=== PATIENT | female | born 1935 | race Hispanic/Latino ===

== ENCOUNTER 2019-10-05 08:56 | Inpatient (IN) | payer MEDICARE, OTHER ==
[~2019-10-05] VITALS: Ht 160 cm; Wt 54.9 kg
[2019-10-05] MEDS ORDERED: ACETAMINOPHEN 325 MG TAB PO STA (09:28)
[2019-10-05] MEDS ORDERED: SODIUM CHLORIDE 0.9% 1000ML 1,000 ML IV STA ×2 (09:28→11:08)
[2019-10-05] MEDS ORDERED: METRONIDAZOLE 500MG/NS 100ML 100 ML IV ONE ×2 (09:30→10:41)
[2019-10-05] MEDS ORDERED: PIPER-TAZ 3.375 GM 50 ML IV ONE (09:30)
--- NOTE | 2019-10-05 10:33 | Diagnostic Imaging Report ---
Chest, PA and lateral. History: Dehydrated, fever, chills. Comparison: None available. Impression: The heart is within normal limits of size. The aorta has a tortuous appearance. Linear atelectasis versus scarring is present in the right lower lung zone. There is no focal consolidation, sizable pleural effusion, or pneumothorax. Degenerative changes of the thoracic spine are present. No acute osseous abnormalities. Signed by: Evelio Martinez MD on 10/05/2019 10:29 AM
[2019-10-05] MEDS ORDERED: ACETAMINOPHEN 325 MG TAB ONE (10:41)
[2019-10-05] MEDS ORDERED: SODIUM CHLORIDE 0.9% 1000ML 1,000 ML ONE ×2 (10:41→11:21)
[2019-10-05] MEDS ORDERED: PIPER-TAZ 3.375 GM 50 ML ONE (10:41)
[2019-10-05] MEDS ORDERED: DEXTROSE 50% SYRINGE 50 ML IV PRN (11:15)
[2019-10-05] MEDS ORDERED: DIPHENHYDRAMINE HCL INJ 50 MG/ML VIAL IV PRN (11:15)
[2019-10-05] MEDS ORDERED: ONDANSETRON HCL INJ 2MG/ML 2ML 2 MG/ML VIAL IV PRN (11:15)
[2019-10-05] MEDS ORDERED: HYDROCHLOROTHIA25 MG (11:26)
[2019-10-05] MEDS ORDERED: PEPCID20 MG (11:26)
[2019-10-05] MEDS ORDERED: LOSARTAN POTAS100 MG PO (11:26)
[2019-10-05] MEDS ORDERED: METFORMIN HCL500 MG PO (11:26)
[2019-10-05] MEDS ORDERED: PRAVASTATIN SOD20 MG (11:26)
[2019-10-05] MEDS: INSULIN REGULAR, HUMAN 100 UNIT/1 ML 3ML VIAL SQ SCH ×3 (11:30→20:38)
--- NOTE | 2019-10-05 11:34 | NUR ---
H&P cc: cough HPI: 84yoF, admitted to hospital after symptoms of cough revealed positive Flu testing. PMH: HTN, HLD, DM2, ?dementia? PShx; unknown Allergies; see emr FH/SH: family involved in care; no etoh/cigs meds; see MAR ROS: unobtainable v/s revd PE tired appearing anicteric ns1s2 reduced BS soft nt nd no e/t skin dry flat affect awake; howard labs/med revd A/P: 84yoF Flu B positive Acute bronchitis TASHIA HTN HLD DM2 PLAN tamiflu IVF hba1c/lipids SCD DIspo: await clinical improvement; Javier Madrigal MD, PhD.
--- NOTE | 2019-10-05 11:39 | NUR ---
Called [facility] for transport to room 290.
--- OUTSIDE RECORDS SUMMARY | 2019-10-05 11:44 | XMS REPORT ---
Author Author [facility] Address Unknown Phone Unavailable Care Team Providers Care Lumber Marker Name Role Phone Saulo PERSAUD Unavailable Unavailable Problems This patient has no known problems. Allergies, Adverse Reactions, Alerts This patient has no known allergies or adverse reactions. Medications This patient has no known medications. Results Test Description Test Time Test Comments Text Results Atomic Results Result Comments CXR 2 VIEW - [facility] 2019-10-05 10:28:00 [place] [address] Patient Name: JHON SHANKS MR #: [id number] : 1935 Age/Sex: 84/F Req #: [id number] Adm Physician: Ordered by: BRANDY PERSAUD MD Report #: [id number] Location: FS Room/Bed: Procedure: [id number] HOPD/CXR 2 VIEW - [facility] Exam Date: 10/05/19 Exam Time: 1004 REPORT STATUS: Signed Chest, PA and lateral. History: Dehydrated, fever, chills. Comparison: None available. Impression: The heart is within normal limits of size. The aorta has a tortuous appearance. Linear atelectasis versus scarring is present in the right lower lung zone. There is no focal consolidation, sizable pleural effusion, or pneumothorax. Degenerative changes of the thoracic spine are present. No acute osseous abnormalities. Signed by: Evelio Schmitz MD on 10/05/2019 10:29 AM Dictated By: EVELIO SCHMITZ MD 1029 Transcribed By: GILLIAN on 10/05/19 1029 COPY TO: BRANDY PERSAUD MD
--- NOTE | 2019-10-05 11:53 | NUR ---
Report to MELANIE Sotelo
--- NOTE | 2019-10-05 12:50 | NUR ---
pt arrived via EMS to [facility] unit; pt awake, alert, no signs of distress, will continue to monitor.
[2019-10-05 12:51] VITALS: BP 106/49
--- NOTE | 2019-10-05 13:25 | NUR ---
pt ambulated to bathroom, had 1 BM of watery diarrhea; unable to obtain urine sample. informed pt of need for urine specimen and left hat on the commode.
[2019-10-05 13:59] LABS: ALBUMIN 2.6 g/dL (3.5-5.0); ALBUMIN/GLOBULIN RATIO 0.8 (0.8-2.0); ANION GAP 17.7 mmol/L (8-16); CALCIUM 8.1 mg/dL (8.4-10.2); CREATININE, SERUM 2.4 mg/dL (0.57-1.11); POTASSIUM 3.7 mmol/L (3.5-5.1)
[2019-10-05 16:00] VITALS: BP 92/50
[2019-10-05] MEDS ORDERED: SODIUM CHLORIDE 0.9% 250ML 250 ML ONE (16:21)
[2019-10-05] MEDS: OSELTAMIVIR PHOSPHATE 75 MG CAP PO SCH ×2 (16:22→20:37)
[2019-10-05] MEDS: ENOXAPARIN 30 MG/0.3 ML SYR SC SCH (16:24)
[2019-10-05] MEDS: FAMOTIDINE 20 MG/2 ML VIAL IV SCH (16:30)
[2019-10-05] MEDS: PIPER-TAZ 3.375 GM 50 ML IV SCH ×2 (16:31→23:57)
--- NOTE | 2019-10-05 19:17 | NUR ---
Received bedside report from day nurse. Patient resting in bed, no s/s of distress or c/o pain at this time. Obtained urine sample for culture as ordered. All safety measures in place. Family at bedside. Will continue to monitor.
[2019-10-05 20:00] VITALS: BP 141/63
[2019-10-05] MEDS: ZOLPIDEM TARTRATE 5 MG TAB PO PRN (20:38)
[2019-10-05 21:05] VITALS: BP 141/63
[2019-10-06] VITALS (9 sets, daily range): BP systolic 98–150; BP diastolic 54–89
[2019-10-06] MEDS: PIPER-TAZ 3.375 GM 50 ML IV SCH ×4 (05:16→23:49)
[2019-10-06 06:42] LABS: BASOPHILS % 0.4 % (0.0-1.0); EOSINOPHILS % 0.3 % (0.0-6.0); HEMATOCRIT 27.8 % (34.2-44.1); HEMOGLOBIN 9.3 g/dL (12.0-16.0); LYMPHOCYTES # (AUTO) 0.7 (1.0-3.2); LYMPHOCYTES % 7.3 % (18.0-39.1); MEAN CORPUSCULAR HEMOGLOBIN 29.8 pg (28-32); MEAN CORPUSCULAR HGB CONC 33.5 g/dL (31-35); MEAN CORPUSCULAR VOLUME 89.1 fL (81-99); MONOCYTES # (AUTO) 0.6 (0.2-0.8); NEUTROPHILS # (AUTO) 8.1 (2.1-6.9); NEUTROPHILS % 85.1 % (38.7-80.0); PLATELET COUNT 107 x10e3/uL (140-360); RED BLOOD COUNT 3.12 x10e6/uL (3.6-5.1); RED CELL DISTRIBUTION WIDTH 13.4 % (11.7-14.4)
--- NOTE | 2019-10-06 06:53 | NUR ---
Bedside report given to day nurse. Patient resting in bed, no s/s of distress or c/o pain at this time. All safety measures in place.
--- NOTE | 2019-10-06 06:54 | NUR ---
walking rounds completed, change of shift report received from office assistant RN. pt in stable condition.
[2019-10-06 07:02] LABS: ANION GAP 15.1 mmol/L (8-16); CALCIUM 7.1 mg/dL (8.4-10.2); CREATININE, SERUM 2.11 mg/dL (0.57-1.11); POTASSIUM 3.1 mmol/L (3.5-5.1)
[2019-10-06] MEDS ORDERED: POTASSIUM CHLORIDE 20 MEQ TAB CR PO STA (07:12)
[2019-10-06] MEDS: INSULIN REGULAR, HUMAN 100 UNIT/1 ML 3ML VIAL SQ SCH ×4 (07:30→20:22)
[2019-10-06] MEDS: ACETAMINOPHEN 325 MG TAB PO PRN ×2 (08:15→21:23)
[2019-10-06] MEDS: OSELTAMIVIR PHOSPHATE 75 MG CAP PO SCH ×2 (08:17→20:39)
[2019-10-06] MEDS: ENOXAPARIN 30 MG/0.3 ML SYR SC SCH (08:29)
[2019-10-06] MEDS: FAMOTIDINE 20 MG/2 ML VIAL IV SCH (08:29)
[2019-10-06 10:05] LABS: BILIRUBIN,URINE NEGATIVE (NEGATIVE); CLARITY,URINE HAZY (CLEAR); COLOR,URINE YELLOW (YELLOW); KETONES,URINE NEGATIVE (NEGATIVE); NITRITE,URINE NEGATIVE (NEGATIVE); PROTEIN,URINE DIPSTICK 1+ (NEGATIVE); URINE UROBILINOGEN 0.2 mg/dL (0.2 - 1)
[2019-10-06 10:06] LABS: LEUKOCYTE ESTERASE ,URINE 1+ (NEGATIVE)
[2019-10-06 10:16] LABS: BACTERIA,URINE FEW /HPF; EPITHELIAL CELLS,URINE FEW /LPF; WBC,URINE (MAN) 21-50 /HPF (0-5)
[2019-10-06 10:17] LABS: MUCUS,URINE FEW (RARE)
--- NOTE | 2019-10-06 12:29 | NUR ---
IM- progress note O/N on events ROS: unobtainable v/s revd PE tired appearing anicteric ns1s2 reduced BS soft nt nd no e/t skin dry flat affect awake; howard labs/med revd A/P: 84yoF Flu B positive Acute bronchitis TASHIA HTN HLD DM2 PLAN tamiflu IVF hba1c/lipids SCD DIspo: await clinical improvement; cont care. Javier Madrigal MD, PhD.
[2019-10-06 12:50] LABS: CHOL/HDL RATIO 4.6 (3.0-3.6)
--- NOTE | 2019-10-06 13:39 | NUR ---
pt's IV to right AC infiltrated; IV discontinued and covered with 2x2 and tape.
[2019-10-06] MEDS: FAMOTIDINE 20 MG TAB PO SCH (16:40)
--- NOTE | 2019-10-06 19:12 | NUR ---
Received bedside report from day nurse. Patient resting in bed, no s/s of distress or c/o pain at this time. All safety measures in place. Will continue to monitor.
[2019-10-06] MEDS: ZOLPIDEM TARTRATE 5 MG TAB PO PRN (20:39)
[2019-10-06] MEDS: PRAVASTATIN 20 MG TAB PO SCH (20:39)
[2019-10-07] VITALS (7 sets, daily range): BP systolic 90–105; BP diastolic 50–55
[2019-10-07] MEDS: PIPER-TAZ 3.375 GM 50 ML IV SCH ×4 (05:21→23:42)
--- NOTE | 2019-10-07 07:01 | NUR ---
walking rounds completed, change of shift report received;pt awake, alert, oriented, no s/s of distress. all safety measures in place.
[2019-10-07] MEDS: INSULIN REGULAR, HUMAN 100 UNIT/1 ML 3ML VIAL SQ SCH ×4 (07:30→20:47)
--- NOTE | 2019-10-07 08:44 | NUR ---
IM- progress note O/N on events ROS: unobtainable v/s revd PE tired appearing anicteric ns1s2 reduced BS soft nt nd no e/t skin dry flat affect awake; howard labs/med revd A/P: 84yoF Flu B positive Acute bronchitis TASHIA HTN HLD DM2 PLAN tamiflu IVF hba1c/lipids SCD DIspo: await clinical improvement; cont care. 10/07 Check labs; E.coli UTI. Javier Madrigal MD, PhD.
[2019-10-07 09:05] LABS: BASOPHILS % 0.4 % (0.0-1.0); EOSINOPHILS # (AUTO) 0.1 (0.0-0.4); EOSINOPHILS % 1.8 % (0.0-6.0); HEMATOCRIT 30.5 % (34.2-44.1); HEMOGLOBIN 10.1 g/dL (12.0-16.0); MEAN CORPUSCULAR HEMOGLOBIN 30.1 pg (28-32); MEAN CORPUSCULAR HGB CONC 33.1 g/dL (31-35); MONOCYTES # (AUTO) 0.9 (0.2-0.8); MONOCYTES % 12.1 % (4.4-11.3); NEUTROPHILS # (AUTO) 5.2 (2.1-6.9); PLATELET COUNT 89 x10e3/uL (140-360); RED BLOOD COUNT 3.35 x10e6/uL (3.6-5.1); RED CELL DISTRIBUTION WIDTH 13.6 % (11.7-14.4)
[2019-10-07] MEDS: OSELTAMIVIR PHOSPHATE 75 MG CAP PO SCH ×2 (09:18→20:46)
[2019-10-07] MEDS: ENOXAPARIN 30 MG/0.3 ML SYR SC SCH (09:18)
[2019-10-07] MEDS: FAMOTIDINE 20 MG TAB PO SCH ×2 (09:18→17:17)
[2019-10-07 09:22] LABS: CALCIUM 7.5 mg/dL (8.4-10.2); CREATININE, SERUM 1.81 mg/dL (0.57-1.11)
--- NOTE | 2019-10-07 20:00 | NUR ---
INITIAL ASSESSMENT COMPLETE, PT IN BED, DROPLET PRECAUTIONS DUE TO POSITIVE FLU, NO DISTRESS NOTED, USES WALKER TO GET TO BATHROOM, IV INFUSING, CALL LIGHT IN REACH
[2019-10-07] MEDS: PRAVASTATIN 20 MG TAB PO SCH (20:46)
[2019-10-08] VITALS (8 sets, daily range): BP systolic 92–124; BP diastolic 53–65
[2019-10-08] MEDS: PIPER-TAZ 3.375 GM 50 ML IV SCH ×3 (06:00→18:01)
--- NOTE | 2019-10-08 07:20 | NUR ---
PATIENT ASSISTED TO THE RESTROOM AND BACK TO BED. CALL LIGHT AT EASY REACH.
[2019-10-08] MEDS: INSULIN REGULAR, HUMAN 100 UNIT/1 ML 3ML VIAL SQ SCH ×4 (07:30→21:00)
--- NOTE | 2019-10-08 07:40 | NUR ---
IM- progress note O/N on events ROS: unobtainable v/s revd PE tired appearing anicteric ns1s2 reduced BS soft nt nd no e/t skin dry flat affect awake; howard labs/med revd A/P: 84yoF Flu B positive Acute bronchitis TASHIA HTN HLD DM2 PLAN tamiflu IVF hba1c/lipids SCD DIspo: await clinical improvement; cont care. 10/07 Check labs; E.coli UTI. 10/08 GNR Bacteremia; repeat cultures now; will need 48 hrs to determine bacteremia aspect. Javier Madrigal MD, PhD.
[2019-10-08] MEDS: ENOXAPARIN 30 MG/0.3 ML SYR SC SCH (09:32)
[2019-10-08] MEDS: FAMOTIDINE 20 MG TAB PO SCH ×2 (09:32→17:06)
[2019-10-08] MEDS: OSELTAMIVIR PHOSPHATE 75 MG CAP PO SCH ×2 (09:32→21:39)
--- NOTE | 2019-10-08 15:15 | NUR ---
SITTING UP IN BED TALKING TO FAMILY MEMBER VISITING. CALL LIGHT AT REACH.
--- NOTE | 2019-10-08 20:46 | NUR ---
RECEIVED PT IN BED AOX3 .DENIES PAIN .CALL LIGHT WITH INREACH .CONTINUE TO MONITOR
[2019-10-08] MEDS: PRAVASTATIN 20 MG TAB PO SCH (21:39)
[2019-10-09] VITALS (8 sets, daily range): BP systolic 109–122; BP diastolic 54–58
--- NOTE | 2019-10-09 05:41 | NUR ---
PT RESTED DURING THE NIGHT .DENIES PAIN .CALL LIGHT WITH IN REACH .CONTINUE TO MONITOR
[2019-10-09] MEDS: PIPER-TAZ 3.375 GM 50 ML IV SCH ×4 (05:47→17:39)
--- NOTE | 2019-10-09 06:49 | NUR ---
IM- progress note O/N on events ROS: unobtainable v/s revd PE tired appearing anicteric ns1s2 reduced BS soft nt nd no e/t skin dry flat affect awake; howard labs/med revd A/P: 84yoF Flu B positive Acute bronchitis TASHIA HTN HLD DM2 PLAN tamiflu IVF hba1c/lipids SCD DIspo: await clinical improvement; cont care. 10/07 Check labs; E.coli UTI. 10/08 GNR Bacteremia; repeat cultures now; will need 48 hrs to determine bacteremia aspect. 10/09 E.coli bacteremia- repeat blood culture negative for 24 hrs; await 48hr marker; cont zosyn. Javier Madrigal MD, PhD.
--- NOTE | 2019-10-09 07:16 | NUR ---
BEDSIDE REPORT GIVEN TO THE ONCOMING NURSE
[2019-10-09] MEDS: INSULIN REGULAR, HUMAN 100 UNIT/1 ML 3ML VIAL SQ SCH ×4 (07:30→21:01)
[2019-10-09] MEDS: FAMOTIDINE 20 MG TAB PO SCH ×2 (10:34→17:39)
[2019-10-09] MEDS: ENOXAPARIN 30 MG/0.3 ML SYR SC SCH (10:34)
[2019-10-09] MEDS: OSELTAMIVIR PHOSPHATE 75 MG CAP PO SCH ×2 (10:34→21:00)
[2019-10-09] MEDS: PRAVASTATIN 20 MG TAB PO SCH (21:00)
[2019-10-10] VITALS: BP 109/53
[2019-10-10] MEDS: PIPER-TAZ 3.375 GM 50 ML IV SCH ×2 (00:17→05:58)
[2019-10-10 04:00] VITALS: BP 115/56
--- NOTE | 2019-10-10 06:45 | NUR ---
Patient laying in bed, eyes close, respirations are even and unlabored. bed low, wheels locked and call light within reach. IV patent, on droplet precaution for positive influenza B.
[2019-10-10] MEDS ORDERED: KEFLEX500 MG PO (07:10)
--- NOTE | 2019-10-10 07:14 | NUR ---
D/C summary Principal Dx: Flu B positive Acute bronchitis E.coli UTI E.coli Bacteremia TASHIA SEcodnary Dx: HTN HLD DM2 PLAN tamiflu IVF hba1c/lipids SCD DIspo: await clinical improvement; cont care. 10/07 Check labs; E.coli UTI. 10/08 GNR Bacteremia; repeat cultures now; will need 48 hrs to determine bacteremia aspect. 10/09 E.coli bacteremia- repeat blood culture negative for 24 hrs; await 48hr marker; cont zosyn. d/c home f/u pcp 1 week stable d/c>35mins Javier Madrigal MD, PhD.
[2019-10-10] MEDS: INSULIN REGULAR, HUMAN 100 UNIT/1 ML 3ML VIAL SQ SCH (07:30)
[2019-10-10 08:00] VITALS: BP 122/57
[2019-10-10] MEDS: ENOXAPARIN 30 MG/0.3 ML SYR SC SCH (08:18)
[2019-10-10] MEDS: OSELTAMIVIR PHOSPHATE 75 MG CAP PO SCH (08:18)
[2019-10-10] MEDS: FAMOTIDINE 20 MG TAB PO SCH (08:18)
--- NOTE | 2019-10-10 08:18 | NUR ---
PATIENTS NIECE CALLED AT THIS TIME TO NOTIFY DISCHARGE ORDER FROM DR. LOPEZ THIS MORNING AND ARRANGE PICKUP FOR PATIENT.
--- NOTE | 2019-10-10 11:38 | NUR ---
IMM LETTER EXPLAINED TO PT. PT VERBALIZED UNDERSTANDING. IMM LETTER SIGNED. COPY TO PT AND COPY TO CHART.
== END 2019-10-10 11:45 | disposition home or self-care (01) | DRG 153 ==
LOC: FSED 08:56 → ERHOLD 09:45 → MED/SURG3 12:50
PROVIDERS: ADMIT Internal Medicine; ATTEND Internal Medicine
DX: J11.1 Influenza due to unidentified influenza virus with other respiratory manifestations (principal); N17.9 Acute kidney failure, unspecified; I10 Essential (primary) hypertension; E78.5 Hyperlipidemia, unspecified; E11.9 Type 2 diabetes mellitus without complications; F03.90 Unspecified dementia, unspecified severity, without behavioral disturbance, psychotic disturbance, mood disturbance, and anxiety; J20.9 Acute bronchitis, unspecified
CPT/HCPCS: 36415; 71046; 80048; 80053; 80061; 81001; 81003; 82948; 83036; 83605; 85025; 87040; 87071; 87086; 87177; 87186; 87205; 87400; 87493; 96360; 96372; 99284; J1650; J1817; J2543; J7030; J7050